=== PATIENT | female | born 1995 | race Caucasian/White ===

== ENCOUNTER → 2016-12-11 | Outpatient (REF) | payer BC ==
[2016-12-11 13:59] LABS: MICROSCOPIC INDICATED? MAN YES (NO); WBC, URINE TNTC /hpf (0-3)
[2016-12-11 14:00] LABS: BACTERIA, URINE MOD AMOUNT; HYALINE CAST, URINE NONE SEEN /lpf (0-1); MICROSCOPIC EXAM PERFORMED; RBC, URINE 40-50 /hpf (0-3); SQUAMOUS EPITHELIAL CELL URINE MOD AMOUNT /hpf (SMALL AMT)
== END ==
LOC: M LAB REF 12:25
PROVIDERS: ATTEND Physician Assistant
DX: R30.0 Dysuria (principal)